=== PATIENT | male | born 1975 | race Caucasian/White ===

== ENCOUNTER 2016-09-30 14:52 | Emergency (ER) | payer OTHER ==
[~2016-09-30] VITALS: Ht 177.8 cm; Wt 72.7 kg
[2016-09-30 14:56] VITALS: BP 142/88; PULSE 92; RESP 16; TEMP 98.7; O2SAT 99
[2016-09-30] MEDS ORDERED: IBUP-232 PO (15:27)
--- NOTE | 2016-09-30 15:27 | PD ---
HPI Chief Complaint: Head Injury Time Seen by Provider: 15:08 Travel History International Travel<30 days: No Contact w/Intl Traveler<30days: No Traveled to known affect area: No History of Present Illness HPI Patient is a 41-year-old male who presents to emergency room with complaints of lightheadedness and dizziness for the past 2 days. Patient reports that 2 days ago, he hit his head on a metal pole. Reports that event occurred around 6-8pm Wednesday night. Reports that since then, he has been feeling lightheaded and dizzy. Reports that he did not suffer LOC after head injury, denies nausea or vomiting or vision changes, reports that "I'm just worried that I hurt my brain. " Patient did not take any ibuprofen or acetaminophen for his headache. Patient with no other c/o. PFSH Past Medical History Medical History: Denies Significant Hx Diminished Hearing: No Tetanus Vaccination: Unknown Past Surgical History Surgical History: No Previous Surgery Social History Alcohol Use: Yes (OCC) Tobacco Use: Yes (1 PPD) Substance Use: No Allergies-Medications (Allergen,Severity, Reaction): Coded Allergies: No Known Allergies (Unverified , 09/30/16) Reported Meds & Prescriptions Reported Meds & Active Scripts Active Ibuprofen 600 Mg Tab 600 Mg PO Q6H PRN Review of Systems General / Constitutional: No: Fever Eyes: No: Visual changes HENT: Positive: Headaches, Lightheadedness, No: Neck Pain Cardiovascular: No: Chest Pain or Discomfort Respiratory: No: Shortness of Breath Gastrointestinal: No: Abdominal Pain Genitourinary: No: Dysuria Musculoskeletal: No: Pain Skin: No Rash Neurologic: No: Weakness Psychiatric: No: Depression Endocrine: No: Polydipsia Hematologic/Lymphatic: No: Easy Bruising Physical Exam Narrative GENERAL: nad, nontoxic SKIN: Warm and dry. HEAD: Atraumatic. Normocephalic. EYES: Pupils equal and round. No scleral icterus. No injection or drainage. ENT: No nasal bleeding or discharge. Mucous membranes pink and moist. NECK: Trachea midline. No JVD. CARDIOVASCULAR: Regular rate and rhythm. No murmur appreciated. RESPIRATORY: No accessory muscle use. Clear to auscultation. Breath sounds equal bilaterally. GASTROINTESTINAL: Abdomen soft, non-tender, nondistended. Hepatic and splenic margins not palpable. MUSCULOSKELETAL: No obvious deformities. No clubbing. No cyanosis. No edema. NEUROLOGICAL: Awake and alert. No obvious cranial nerve deficits. Motor grossly within normal limits. Normal speech., Cranial nerves to 12 grossly intact with no neurological deficits PSYCHIATRIC: Appropriate mood and affect; insight and judgment normal. Data Data Last Documented VS Vital Signs Date Time Temp Pulse Resp B/P Pulse Ox O2 Delivery O2 Flow Rate FiO2 09/30/16 16:00 79 16 115/60 97 Room Air 09/30/16 14:[address] Brain W/O Iv Contrast(Rout) (09/30/16 ) [facility] Medical Decision Making Medical Screen Exam Complete: Yes Emergency Medical Condition: Yes Interpretation(s) Vital Signs Date Time Temp Pulse Resp B/P Pulse Ox O2 Delivery O2 Flow Rate FiO2 09/30/16 15:05 16 99 Room Air 09/30/16 14:56 98.7 92 16 142/88 99 Differential Diagnosis Intracranial hemorrhage, concussion, cephalgia Narrative Course Patient is a 41-year-old male who presents to emergency room with complaints of lightheadedness and dizziness which began 2 days ago after he hit his head on a metal pole. Patient reports that he is not on any anticoagulants, denies loss of consciousness or nausea vomiting after head injury. Patient reports that he has had no vision changes or nausea or vomiting, reports that he just feels lightheaded and dizzy after the event and wanted to have his brain evaluated. Patient nontoxic evaluation, cranial nerves to 12 grossly intact with no neurological deficits. CT of head ordered for evaluation of possible ICH. Reviewed with patient signs and symptoms and treatment for concussion Last Impressions Head CT 09/30/16 0000 Signed Impressions: Service Date/Time: Friday, September 30, 2016 15:40 - CONCLUSION: Intracranially normal. Intact calvarium. Right frontal and ethmoid sinus air cell disease Italo Crocker MD Patient was given a copy of his CAT scan report. Patient will follow-up with his primary care doctor and return to ER as needed. Concussion precautions were given to patient. Diagnosis Primary Impression: Concussion Qualified Code: S06.0X0A - Concussion, without loss of consciousness, initial encounter Patient Instructions: General Instructions Departure Forms: Tests/Procedures, Work Release Enter return to work date: Oct 01, 2016 Additional Instructions: Please follow-up with your primary care doctor Return to ER as needed Please return to ER if symptoms progress or worsen Scripts Ibuprofen 600 Mg [id number] Mg PO Q6H PRN (Pain/Inflammation) #40 TAB Ref 0 Prov:Rosana Price DO 09/30/16 Disposition: 01 DISCHARGE HOME Condition: Stable Rosana Price DO Sep 30, 2016 15:27
--- NOTE | 2016-09-30 15:55 | RADHPO ---
EXAM DATE/TIME: 09/30/2016 15:40 [facility] COMPARISON: No previous studies available for comparison. INDICATIONS : Trauma, hit superior aspect of head on metal bar. Dizziness and lightheaded since. RADIATION DOSE: 67.51 CTDIvol (mGy) MEDICAL HISTORY : None SURGICAL HISTORY : None. ENCOUNTER: Initial ACUITY: 3 days PAIN SCALE: 2/10 LOCATION: cranial TECHNIQUE: Multiple contiguous axial images were obtained of the head. Using automated exposure control and adj ustment of the mA and/or kV according to patient size, radiation dose was kept as low as reasonably a chievable to obtain optimal diagnostic quality images. FINDINGS: CEREBRUM: The ventricles are normal for age. No evidence of midline shift, mass lesion, hemorrhage or acute in farction. No extra-axial fluid collections are seen. POSTERIOR FOSSA: The cerebellum and brainstem are intact. The 4th ventricle is midline. The cerebellopontine angle i s unremarkable. EXTRACRANIAL: The visualized portion of the orbits is intact. Opacified right frontal sinus and equal periosteal th ickening and opacification of ethmoid air cells. SKULL: The calvaria is intact. No evidence of skull fracture. CONCLUSION: Intracranially normal. Intact calvarium. Right frontal and ethmoid sinus air cell disease Italo Crocker MD on September 30, 2016 at 15:53 Board Certified Radiologist. This report was verified electronically.
[2016-09-30 16:00] VITALS: BP 115/60; PULSE 79; RESP 16; O2SAT 97
[2016-09-30] MEDS ORDERED: IBUPROFEN 600 MG TAB PO ONE (16:15)
== END 2016-09-30 16:21 | disposition home or self-care (01) ==
LOC: PHED 14:52
DX: S06.0X0A Concussion without loss of consciousness, initial encounter (principal); F17.210 Nicotine dependence, cigarettes, uncomplicated; W22.8XXA Striking against or struck by other objects, initial encounter; Y93.9 Activity, unspecified; Y92.9 Unspecified place or not applicable; Y99.9 Unspecified external cause status
CPT/HCPCS: 70450